=== PATIENT | male | born 1975 | race Caucasian/White ===

== ENCOUNTER 2021-04-05 18:42 | Emergency (ER) | payer OTHER, SELFPAY ==
--- NOTE | ~2021-04-05 | XR_ITS ---
EXAMINATION: XR foot RT min 3V DATE: 04/05/2021 19:19 INDICATION: Right foot pain TECHNIQUE: Dorsoplantar, lateral, and 2 oblique views of the right foot were obtained. COMPARISON: None. FINDINGS: There is hallux valgus at the first metatarsophalangeal joint. No fracture is identified. T he soft tissues are normal. IMPRESSION: 1. Hallux valgus at the first metatarsophalangeal joint. No acute osseous abnormality. Reviewed, dictated and finalized at location A. IMPRESSION: 1. Hallux valgus at the first metatarsophalangeal joint. No acute osseous abnor mality.
[2021-04-05 19:08] VITALS: BP 143/64; PULSE 97; RESP 18; TEMP 36.1; O2SAT 97
--- NOTE | 2021-04-05 21:45 | ED_ITS ---
HPI - Extremity Problem General Chief complaint: Extremity Problem,Nontraumatic Stated complaint: pain to feet Time Seen by Provider: 04/05/21 21:07 Source: patient Mode of arrival: ambulatory Limitations: no limitations History of Present Illness HPI Narrative: Patient is a 45-year-old male complaining of right foot swelling after he felt something sting me inside his house yesterday. Patient states that when he woke up this morning he noticed his foot swelling. Patient denies any calf pain or swelling. Patient denies any fever or chills. Related Data Allergies Allergy/AdvReac Type Severity Reaction Status Date / Time ketorolac Allergy Mild Vomiting Verified 04/05/21 21:16 gabapentin Allergy Hallucinati Verified 04/05/21 21:16 ng Review of Systems Review of Systems: All systems reviewed & are unremarkable except as noted in HPI and below PMFSH Social History Social History Smoking status: Current every day smoker Alcohol intake: never Comments Past medical history: Bunions Family history: Unknown Social history: Positive for smoker, occasional EtOH use, no drug use Exam Const: General: no acute distress and alert Nutritional Appearance: obese Orientation/consciousness: patient oriented x3 HENMT: Head: normal to inspection Neck: Neck: normal visual inspection Resp: Effort & Inspection: normal respiratory effort Skin: General skin exam: normal color Neuro: General: patient oriented x3 and moves all extremities Extrem: Other: Mild right foot swelling, negative for any redness or warmth, full range of motion, neurovascular intact Course Vital Signs Vital signs: Vital Signs Temperature 36.1 C L 04/05/21 19:08 Pulse Rate 97 04/05/21 19:08 Respiratory Rate 18 04/05/21 19:08 Blood Pressure 143/64 H 04/05/21 19:08 Pulse Oximetry 97 04/05/21 19:08 Temperature 36.1 C L 04/05/21 19:08 Pulse Rate 97 04/05/21 19:08 Respiratory Rate 18 04/05/21 19:08 Blood Pressure 143/64 H 04/05/21 19:08 Pulse Oximetry 97 04/05/21 19:08 MDM - Extremity (Nontraumatic) Differential Diagnosis Differential diagnosis: Likely gout and other (Insect bite, allergic reaction, p eripheral edema) Discharge Plan Discharge Clinical Impression: Localized swelling of right foot Patient Disposition: Home, Self-Care Condition: Stable Instructions: General Allergic Reaction (ED) Follow-up/Referrals: Keyur,Eugene Alvarado MD [Primary Care Provider] - 04/06/21 Time of Disposition: 21:49
[2021-04-05] MEDS: FAMOTIDINE 20 MG TABLET 40 MG PO (22:03)
[2021-04-05] MEDS: diphenhydrAMINE HCl INJ 50 MG/ML VIAL IM (22:03)
== END 2021-04-05 22:10 | disposition home or self-care (01) ==
PROVIDERS: Emergency Provider Emergency Medicine; PCP Family Medicine
DX: M79.89 Other specified soft tissue disorders (principal); F17.200 Nicotine dependence, unspecified, uncomplicated
CPT/HCPCS: 73630; 96372; 99284; A9270; J1100; J1200

== ENCOUNTER 2021-07-27 15:13 | Emergency (ER) | payer OTHER, SELFPAY ==
--- NOTE | ~2021-07-27 | XR_ITS ---
EXAMINATION: XR chest 2V EXAM DATE: 07/27/2021 15:35 INDICATION: L Sided Lower Cp Radiates To Back Since This Morning W/ SOB . TECHNIQUE: Frontal and lateral projections of the chest obtained and reviewed. Comparison is made to prior examination from 01/02/2017. FINDINGS: The lungs are clear. There are no pleural effusions. The cardiomediastinal silhouette is within normal limits. There is no pneumothorax suspected. The bones and soft tissues are unremarkab le. IMPRESSION: No acute cardiopulmonary findings. Reviewed, dictated and finalized at location B. MOTIVE CUSTOMER EXPERIENCE ADVISOR
--- NOTE | 2021-07-27 15:14 | ECG_ITS ---
Measurements Intervals [place] Rate: 96 P: 2 NC: 133 QRS: 59 QRSD: 105 T: 49 QT: 353 QTc: 447 Interpretive Statements SINUS RHYTHM BASELINE ARTIFACT- I, II, III, AVR, AVL, AVF, V1-V6 NORMAL ECG Electronically Signed On 07-27-2021 15:55:56 TECHNICAL SUPERVISOR by Peter Leblanc D.O.
[2021-07-27 15:15] VITALS: BP 137/75; PULSE 95; RESP 20; TEMP 36.4; O2SAT 100
[2021-07-27 15:30] LABS: Basophils Absolute Auto 0.1 K/mm3 (0.0-0.1); Basophils Percent Auto 0.7 % (0.2-1.2); Eosinophils Absolute Auto 0.3 K/mm3 (0-0.3); Eosinophils Percent Auto 4.2 % (0-4.4); Hematocrit 50.9 % (42.0-52.0); Hemoglobin 17.3 g/dL (14.0-18.0); Immature Granulocyte Absolute 0.02 K/mm3 (0.00-0.031); Immature Granulocyte Percent A 0.2 % (0-0.5); Lymphocytes Absolute Auto 2.82 K/mm3 (0.9-3.2); Lymphocytes Percent Auto 34.9 % (18.3-44.2); Mean Corpuscular Hemoglobin 33.5 pg (26-34); Mean Corpuscular Volume 98.6 fl (80-100); Mean Platelet Volume 11.3 fl (7.4-10.4); Monocytes Absolute Auto 0.7 K/mm3 (0.1-0.6); Neutrophils Absolute Auto 4.2 K/mm3 (1.3-6.7); Platelet Count Result 159 k/mm3 (150-375); Red Blood Count 5.16 M/mm3 (4.6-6.20); Red Cell Distribution Width 12.9 % (11.5-14.5); White Blood Count 8.1 K/mm3 (4.5-10.0)
[2021-07-27 15:40] LABS: Alanine Aminotransferase 61 U/L (4-50); Albumin Level 4.4 g/dL (3.5-5.1); Alkaline Phosphatase 60 U/L (38-126); Anion Gap 9 mmol/L (8-16); Aspartate Amino Transferase 40 U/L (17-59); Bilirubin,Total 0.3 mg/dL (0.2-1.3); Blood Urea Nitrogen 14 mg/dL (9-20); Calcium 9.2 mg/dL (8.4-10.2); Carbon Dioxide 25 mmol/L (22-30); Chloride 104 mmol/L (98-107); Estimated CRCL calculation 132 ml/min; Estimated Glomerular Filt Rate > 60; Glucose 173 mg/dL (65-110); INR 0.9; Lipase 117 U/L (23-300); Potassium 3.9 mmol/L (3.4-5.0); Sodium 138 mmol/L (137-145)
[2021-07-27 15:41] LABS: Partial Thromboplastin Time 26.9 SECONDS (22.3-36.8)
[2021-07-27 15:52] LABS: Troponin I < 0.012 ng/mL (0.000-0.034)
[2021-07-27 18:00] VITALS: BP 124/69; PULSE 77; RESP 16; O2SAT 100
[2021-07-27 18:56] LABS: Troponin I < 0.012 ng/mL (0.000-0.034)
[2021-07-27 19:00] VITALS: BP 118/62; PULSE 81; RESP 16; O2SAT 96
[2021-07-27] MEDS: MORPHINE SULFATE (*CRX) 4 MG/ML INJ IV PUSH (19:17)
--- NOTE | 2021-07-27 19:18 | ED.CHESTPAIN ---
HPI - Chest Pain General Chief Complaint: Chest Pain Stated Complaint: chest pains Time Seen by Provider: 07/27/21 18:19 Source: patient and family Mode of arrival: ambulatory Limitations: no limitations History of Present Illness HPI narrative: 45-year-old with a history of diabetes here with complaints of sudden onset of chest pain when he woke up this morning. Patient states the pain was intense which made him to buckle down. He denied any shortness of breath, nausea or vomiting. He states the pain is in the upper abdomen. No history of nausea or vomiting. MD complaint: chest pain Onset (ago): day(s) (1) Timing of current episode: episodic and still present Onset: during rest Pain location: left chest and epigastric Pain radiation: none Severity: moderate Quality: aching and heaviness Relieving factors: nothing Exacerbating factors: nothing Risk Factors Coronary artery disease risk factors: diabetes Related Data Allergies Allergy/AdvReac Type Severity Reaction Status Date / Time ketorolac AdvReac Mild Vomiting Verified 07/27/21 19:17 gabapentin AdvReac Hallucinati Verified 07/27/21 19:17 ng Review of Systems Review of Systems: All systems reviewed & are unremarkable except as noted in HPI and below Constitutional: Constitutional: Reports no additional constitutional complaints Eyes: Eyes: Reports no additional eye complaints ENT: Reports system reviewed and no additional complaints, except as documented Cardiovascular: Cardiovascular: Reports as per HPI Respiratory: Respiratory: Reports no additional respiratory complaints Gastrointestinal: Gastrointestinal: Reports as per HPI Musculoskeletal: Musculoskeletal: Reports no additional musculoskeletal complaints PMFSH Social History Social History Smoking status: Current every day smoker Alcohol intake: never Exam Narrative: GENERAL: Well-appearing, well-nourished, and in no acute distress. HEAD: Normocephalic, atraumatic. EYES: PERRLA and EOMI.. NECK: Supple. CHEST: Clear to auscultation. No respiratory distress. HEART: Regular rate and rhythm. No murmur heard. Normal peripheral pulses. ABDOMEN: Soft, nontender, nondistended, normal active bowel sounds. EXTREMITIES: Normal range of motion. No edema. SKIN: Warm, dry, no rash. NEURO: No focal deficits. Alert and oriented x3. PSYCH: Normal mood and affect. Course Course Emergency Course: Patient still complains of pain in the upper abdomen none in the chest he wants something to relax him. I informed him about the lab work, EKG and chest x-ray findings. His pain is most likely noncardiac. Advised him to follow-up his primary doctor. Vital Signs Vital signs: Vital Signs Temperature 36.4 C L 07/27/21 15:15 Pulse Rate 95 07/27/21 15:15 Respiratory Rate 20 07/27/21 15:15 Blood Pressure 137/75 07/27/21 15:15 Pulse Oximetry 100 07/27/21 15:15 Temperature 36.4 C L 07/27/21 15:15 Pulse Rate 95 07/27/21 15:15 Respiratory Rate 20 07/27/21 15:15 Blood Pressure 137/75 07/27/21 15:15 Pulse Oximetry 100 07/27/21 15:15 MDM - Chest Pain Differential Diagnosis Differential diagnosis: Likely atypical chest pain, costochondritis and chest pain Medical Records Data Attestation: I reviewed the patient's medical records. Lab Data Attestation: I reviewed the patient's lab results. Result diagrams: 07/27/21 15:25 07/27/21 15:25 Labs: Lab Results 07/27/21 07/27/21 07/27/21 Range/Units 15:25 15:25 15:25 WBC 8.1 (4.5-10.0) K/mm3 RBC 5.16 (4.6-6.20) M/mm3 Hgb 17.3 (14.0-18.0) g/dL Hct 50.9 (42.0-52.0) % MCV 98.6 (80-100) fl MCH 33.5 (26-34) pg MCHC 34.0 (32-36) g/dl RDW 12.9 (11.5-14.5) % Plt Count 159 (150-375) k/mm3 MPV 11.3 H (7.4-10.4) fl Immature Gran % (Auto) 0.2 (0-0.5) % Neut % (Auto) 52.0 (45.5-73.1) % Lymph %
[2021-07-27 19:49] VITALS: BP 119/68; PULSE 79; RESP 15; O2SAT 98
== END 2021-07-27 19:54 | disposition home or self-care (01) ==
PROVIDERS: Emergency Medicine; Emergency Provider Family Medicine; PCP Family Medicine
DX: R07.89 Other chest pain (principal); F17.210 Nicotine dependence, cigarettes, uncomplicated
CPT/HCPCS: 36415; 71046; 80053; 83690; 84484; 85025; 85610; 85730; 93005; 96374; 99284; J2270

== ENCOUNTER 2023-04-04 15:09 | Emergency (ER) | payer OTHER, SELFPAY ==
[2023-04-04 15:11] VITALS: BP 128/88; PULSE 92; RESP 20; TEMP 36.4; O2SAT 98
--- NOTE | 2023-04-04 17:49 | ED.GENADULT ---
[facility] - General Adult General Chief complaint: Extremity Problem,Nontraumatic Stated complaint: RLE issues Time Seen by Provider: 04/04/23 17:37 Source: patient Mode of arrival: ambulatory Limitations: no limitations History of Present Illness HPI narrative: This is a 47-year-old male who presents to the ED with chief complaint of right foot pain ongoing for several months. Reports the pain is getting worse which is why he is here today. Reports he has known bunions and plantar warts causing pain. He is waiting for his appointment with podiatry after being referred by his PCP for this. He does not have any prescriptions for anti-inflammatories. Denies fevers, chills, numbness, weakness. Related Data Home Medications Medication Instructions Recorded Confirmed amitriptyline 50 mg tablet 07/27/21 07/27/21 baclofen 10 mg tablet mg 07/27/21 blood sugar diagnostic ([facility] 07/27/21 07/27/21 Verio test strips) bupropion HCl 150 mg tablet,12 hr PO 07/27/21 sustained-release buspirone 30 mg tablet mg 07/27/21 clonazepam 0.5 mg tablet 07/27/21 fluticasone propionate 50 intranasal 07/27/21 mcg/actuation nasal spray,suspension hydrocodone 10 mg-acetaminophen tablet 07/27/21 325 mg tablet [facility]ets [facility] 07/27/21 07/27/21 Plus Lancet) metformin 500 mg tablet mg 07/27/21 omeprazole 40 mg capsule,delayed 07/27/21 release pregabalin 75 mg capsule 07/27/21 Allergies Allergy/AdvReac Type Severity Reaction Status Date / Time ketorolac AdvReac Mild Vomiting Verified 04/04/23 17:42 gabapentin AdvReac Hallucinati Verified 04/04/23 17:42 ng Review of Systems Review of Systems: All systems as dictated in [facility] Social History Social History Smoking status: Current every day smoker Alcohol intake: never Exam Narrative: GENERAL: Well-appearing, well-nourished, and in no acute distress. HEAD: Normocephalic, atraumatic. EYES: PERRLA and EOMI. ENT: Nares clear, no rhinorrhea or epistaxis. Mucous membranes moist. Oropharynx without tonsillar hypertrophy exudate or other lesions. NECK: Supple. No adenopathy or masses. CHEST: No respiratory distress. Clear to auscultation. No wheezes rales or rhonchi HEART: Regular rate and rhythm. No murmur heard. Normal peripheral pulses. ABDOMEN: Soft, nontender, nondistended, normal active bowel sounds. MSK: Tenderness at the great toe MTP on the right foot. Prominent first MTP joint. Tenderness to the plantar surface of the right foot diffusely. Full range of motion of the foot and ankle. No warmth, bruising, or crepitus. No deformity. Normal range of motion. No edema. SKIN: Warm, dry, no rash. NEURO: Alert and oriented x3. No focal deficits. PSYCH: Normal mood and affect. Course Vital Signs Vital signs: Vital Signs Temperature 97.5 F L 04/04/23 15:11 Pulse Rate 92 04/04/23 15:11 Respiratory Rate 20 04/04/23 15:11 Blood Pressure 128/88 04/04/23 15:11 Pulse Oximetry 98 04/04/23 15:11 Oxygen Delivery Room Air 04/04/23 15:11 Temperature 97.5 F L 04/04/23 15:11 Pulse Rate 92 04/04/23 15:11 Respiratory Rate 20 04/04/23 15:11 Blood Pressure 128/88 04/04/23 15:11 Pulse Oximetry 98 04/04/23 15:11 Oxygen Delivery Room Air 04/04/23 15:11 Medical Decision Making MDM Narrative Medical decision making narrative: This is a 47-year-old male who presents to the ED with chief complaint of chronic right foot pain. Vitals are normal. Exam shows prominent right foot bunion and evidence of plantar fasciitis. He already has a podiatry appointment scheduled but needed help with pain control. I advised him that he needs very supportive comfortable shoes. Prescription for naproxen written. 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 Pt will be discharged in stable condition. Return precautions given and support
== END 2023-04-04 18:25 | disposition home or self-care (01) ==
LOC: ANHED 18:04
PROVIDERS: Emergency Provider Physician Assistant; PCP Family Medicine
DX: M72.2 Plantar fascial fibromatosis (principal); F17.200 Nicotine dependence, unspecified, uncomplicated
CPT/HCPCS: 99283

== ENCOUNTER 2025-06-08 22:33 | Emergency (ER) | payer OTHER, SELFPAY ==
--- NOTE | 2025-06-08 22:36 | ECG_ITS ---
Test Date: 2025-06-08 22:40:48 Measurements Intervals [place] Rate: 97 P: 85 OK: 162 QRS: 98 QRSD: 108 T: 128 QT: 359 QTc: 457 Interpretive Statements SINUS RHYTHM WITH SINUS ARRHYTHMIA RIGHT AXIS DEVIATION BORDERLINE R WAVE PROGRESSION, ANTERIOR LEADS BASELINE ARTIFACT- I, II, III, AVR, AVL, AVF, V1-V6 BORDERLINE ECG No previous ECG available for comparison Electronically Signed On 06-09-2025 07:08:39 DOCTOR OF NATUROPATHIC MEDICINE by Peter Leblanc D.O.
[2025-06-08 22:41] VITALS: BP 137/107; PULSE 113; RESP 22; TEMP 36.7; O2SAT 99
[2025-06-08 22:47] VITALS: RESP 20
[2025-06-08 22:51] VITALS: O2SAT 99
[2025-06-08 22:59] LABS: Hematocrit 43.8 % (42.0-52.0); Hemoglobin 15.5 g/dL (14.0-18.0); Immature Granulocyte Percent A 0.4 % (0-0.5); Lymphocytes Absolute Auto 1.81 K/mm3 (0.9-3.2); Mean Corpuscular HGB Conc 35.4 g/dl (32-36); Mean Corpuscular Hemoglobin 33.4 pg (26-34); Mean Corpuscular Volume 94.4 fl (80-100); Nucleated Red Blood Cells Absolute Auto 0.000 K/mm3 (0.0-0.012); Nucleated Red Blood Cells Perc 0.0 % (0.0-0.2); Platelet Count Result 192 k/mm3 (150-375); Red Blood Count 4.64 M/mm3 (4.6-6.20); White Blood Count 10.6 K/mm3 (4.5-10.0)
--- NOTE | 2025-06-08 22:59 | ED_ITS ---
HPI - General Adult General Chief complaint: Overdose Stated complaint: POSSIBLE OVERDOSE, HALLUCINATIONS Time Seen by Provider: 06/08/25 22:47 History of Present Illness HPI narrative: Patient 49-year-old gentleman who presents emergency department with chief complaint of I think I am having a psychotic break the patient reports that he has been under immense amount of stress recently reports that his several months ago and reports that he has been using a lot of drugs including cocaine reports he last used cocaine earlier today the patient reports this evening he was watching TV and thought the TV was specifically talking to him he started yelling at TV police was called for a potential domestic disturbance the patient states that he is concerned that he may be getting psychotic Related Data Home Medications ?Medication ?Instructions ?Recorded ?Confirmed ?Last Taken ?Type amitriptyline 50 mg tablet 07/27/21 07/27/21 Unknown History baclofen 10 mg tablet mg 07/27/21 Unknown History blood sugar diagnostic (OneTouch 07/27/21 07/27/21 Un known History Verio test strips) bupropion HCl 150 mg tablet,12 hr PO 07/27/21 Unknown History sustained-release buspirone 30 mg tablet mg 07/27/21 Unknown History clonazepam 0.5 mg tablet 07/27/21 Unknown History fluticasone propionate 50 intranasal 07/27/21 Unknown History mcg/actuation nasal spray,suspension hydrocodone 10 mg-acetaminophen tablet 07/27/21 Unkno wn History 325 mg tablet lancets 33 gauge (OneTouch Delica 07/27/21 07/27/21 U nknown History Plus Lancet) metformin 500 mg tablet mg 07/27/21 Unknown History omeprazole 40 mg capsule,delayed 07/27/21 Unknown Hi story release pregabalin 75 mg capsule 07/27/21 Unknown History Allergies Allergy/AdvReac Type Severity Reaction Status Date / Time ketorolac AdvReac Mild Vomiting Verified 04/04/23 17:42 gabapentin AdvReac Hallucinati Verified 04/04/23 17:42 ng Review of Systems 2 Review of Systems: A 10 system review of systems was completed on the patient and is negative except for what is stated in the HPI. Nursing and ancillary documentation was reviewed. [facility] Social History Social History Smoking status: Current every day smoker Alcohol intake: never Substance use type: marijuana and crack/cocaine Exam 2 Narrative: GENERAL: Well-appearing, well-nourished, and in no acute distress. HEAD: Normocephalic, atraumatic. EYES: PERRLA and EOMI. ENT: Nares clear, no rhinorrhea or epistaxis. Mucous membranes moist. NECK: Supple. CHEST: Clear to auscultation. No respiratory distress. HEART: Regular rate and rhythm. No murmur heard. Normal peripheral pulses. ABDOMEN: Soft, nontender, nondistended, normal active bowel sounds. EXTREMITIES: Normal range of motion. No edema. SKIN: Warm, dry, no rash. NEURO: No focal deficits. Alert and oriented x3. PSYCH: Normal mood and affect. Denies suicidal or homicidal ideation reports to auditory hallucinations Course Vital Signs Vital signs: Vital Signs Temperature 36.7 C 06/08/25 22:41 Pulse Rate 113 H 06/08/25 22:41 Respiratory Rate 22 H 06/08/25 22:41 Blood Pressure 137/107 H 06/08/25 22:41 Pulse Oximetry 99 06/08/25 22:41 Oxygen Delivery Room Air 06/08/25 22:41 Temperature 36.7 C 06/08/25 22:41 Pulse Rate 113 H 06/08/25 22:41 Respiratory Rate 20 06/08/25 22:47 Blood Pressure 137/107 H 06/08/25 22:41 Pulse Oximetry 99 06/08/25 22:51 Oxygen Delivery Room Air 06/08/25 22:51 MDM Differential Diagnosis Differential Diagnosis: Substance induced mood disorder, substance induced psychosis, psychotic disorder, The patient was alert and oriented x3 but having auditory hallucinations the patient chose to leave without completing services Lab Data 06/08/25 22:53 06/08/25 22:53 Labs: Lab Results 06/08/25 06/09/25 Range/Units 22:53 00:53 WBC 10.6 H (4.5-10.0) K/mm3 RBC 4.64 (4.6-6.20) M/mm3 Hgb 15.5 (14.0-18.0) g/dL Hct 43.8 (42.0-52.0) % MCV 94.4 (80-100) fl MCH 33.4 (26-34) pg MCHC 35.4 (32-36) g/dl RDW 13.1 (11.5-14.5) % Plt Count 192 (150-375) k/mm3 MPV 10.9 H (7.4-10.4) fl Immature Gran % (Auto) 0.4 (0-0.5) % Neut % (Auto) 74.6 H (45.5-73.1) % Lymph % (Auto) 17.0 L (18.3-44.2) % [place] % (Auto) 7.2 (2.6-8.5) % Eos % (Auto) 0.3 (0-4.4) % Baso % (Auto) 0.5 (0.2-1.2) % Lymph # (Auto) 1.81 (0.9-3.2) K/mm3 [place] # (Auto) 0.8 H (0.1-0.6) K/mm3 Eos # (Auto) 0.0 (0-0.3) K/mm3 Baso # (Auto) 0.1 (0.0-0.1) K/mm3 Abs Immat Gran (auto) 0.04 H (0.00-0.031) K/mm3 Absolute Neuts (auto) 7.9 H (1.3-6.7) K/mm3 Absolute Nucleated RBC 0.000 (0.0-0.012) K/mm3 Nucleated RBC % 0.0 (0.0-0.2) % Sodium 138 (137-145) mmol/L Potassium 3.4 (3.4-5.0) mmol/L Chloride 104 (98-107) mmol/L Carbon Dioxide 24 (22-30) mmol/L Anion Gap 10 (4-12) mmol/L BUN 11 (9-20) mg/dL Creatinine 0.95 (0.7-1.3) mg/dL Estim Creat Clear Calc 107 ml/min Estimated GFR > 60 (59 - ) Glucose 105 (65-110) mg/dL Lactic Acid 1.1 (0.7-2.0) mmol/L Calcium 9.8 (8.4-10.2) mg/dL Total Bilirubin 0.7 (0.2-1.3) mg/dL AST 48 (17-59) U/L ALT 71 H (6-50) U/L Alkaline Phosphatase 55 (38-126) U/L Total Protein 8.4 H (6.3-8.2) g/dL Albumin 4.8 (3.5-5.1) g/dL TSH 0.882 (0.465-4.680) uIU/mL Urine Color Yellow (Yellow) Urine Appearance Clear (Clear) Urine pH 6.0 (5.0-9.0) Ur Specific [place] 1.013 (1.001-1.035) Urine Protein 2+ H (Negative) mg/dL Urine Glucose (UA) Negative (Negative) mg/dL Urine Ketones 1+ H (Negative) mg/dL Ur Blood (Man) Negative (Negative) Urine Nitrate Negative (Negative) Urine Bilirubin Negative (Negative) Urine Urobilinogen 2.0 H (<2.0) mg/dL Add Ur Microanalysis Reviewed Leukocyte Esterase Rfl 1+ H (Negative) MERYL/UL Urine RBC 0-2 (0-2) /hpf Urine WBC 11-20 H (0-3) /hpf Ur Squamous Epith Cells None seen (Few) /hpf Urine Bacteria None seen /hpf Urine Casts 0-2 Hyaline Casts Present (None) /lpf Urine Mucus Present /lpf Sperm Presence Present Salicylates < 1.0 L (2-20) mg/dL Urine Opiates Screen Positive A (Negative) Urine Methadone Screen Negative (Negative) Acetaminophen < 10 L (10-30) ug/mL Ur Barbiturates Screen Negative (Negative) Ur Phencyclidine Scrn Negative (Negative) Ur Amphetamine Screen Negative (Negative) U Benzodiazepines Scrn Negative (Negative) Urine Cocaine Screen Positive A (Negative) U Cannabinoids Screen Positive A (Negative) Ethyl Alcohol < 10 (<10) mg/dL Influenza A (RT-PCR) Negative (Negative) Influenza B (RT-PCR) Negative (Negative) SARS-CoV-2 RNA (RT-PCR) Negative (Negative) Discharge Plan Discharge Clinical Impression: Cocaine intoxication, Auditory hallucinations Patient Disposition: Elopement After Seen by Prov Patient Language: Luxembourgish Prescriptions: No Action metformin 500 mg tablet bupropion HCl 150 mg tablet sustained-release 12 hr PO clonazepam 0.5 mg tablet (DME) OneTouch Verio test strips Strip MISCELLANEOUS hydrocodone-acetaminophen 10-325 mg tablet omeprazole 40 mg capsule,delayed release(DR/EC) amitriptyline 50 mg tablet baclofen 10 mg tablet buspirone 30 mg tablet fluticasone propionate 50 mcg/actuation spray,suspension INTRANASAL pregabalin 75 mg capsule (DME) lancets [OneTouch Delica Plus Lancet] 33 gauge misc MISCELLANEOUS naproxen 500 mg tablet 500 mg PO BID PRN (Reason: pain) Qty: 30 0RF methylprednisolone [Medrol (Jose)] 4 mg tablets,dose pack See Rx Instructions .ROUTE .COMPLEX Qty: 21 0RF Rx Instructions: orally per package directions Follow-up/Referrals: Keyur,Eugene Alvarado MD [Primary Care Provider]
[2025-06-08 23:08] LABS: Alanine Aminotransferase 71 U/L (6-50); Albumin Level 4.8 g/dL (3.5-5.1); Alkaline Phosphatase 55 U/L (38-126); Anion Gap 10 mmol/L (4-12); Aspartate Amino Transferase 48 U/L (17-59); Bilirubin,Total 0.7 mg/dL (0.2-1.3); Blood Urea Nitrogen 11 mg/dL (9-20); Calcium 9.8 mg/dL (8.4-10.2); Carbon Dioxide 24 mmol/L (22-30); Chloride 104 mmol/L (98-107); Estimated CRCL calculation 107 ml/min; Estimated Glomerular Filt Rate > 60; Glucose 105 mg/dL (65-110); Potassium 3.4 mmol/L (3.4-5.0); Sodium 138 mmol/L (137-145); Total Protein 8.4 g/dL (6.3-8.2)
[2025-06-08 23:14] LABS: Acetaminophen < 10 ug/mL (10-30); Salicylate < 1.0 mg/dL (2-20)
--- OUTSIDE RECORDS SUMMARY | 2025-06-08 23:27 | XMS_ITS | Clinical Summary ---
Author Organization [place] [address] [address] [facility] [place] [address] Care Team Providers Care Feeder/Folder Name Role Phone Eugene Baer MD Primary Care Provider [phone] Eugene Baer MD Unavailable [phone] Allergies Active Allergy Reactions Criticality Noted Date Comments Gabapentin Hallucinations Medium 07/07/2022 Ketorolac Nausea only Low 07/07/2022 Meloxicam Other (See comments) Low 07/07/2022 Made him feel weird Medications amitriptyline (ELAVIL) 50 mg tablet Take 50 mg by mouth nightly Active albuterol HFA (PROVENTIL HFA,VENTOLIN HFA,PROAIR HFA) 90 mcg/actuation inhaler Inhale 2 puffs every 6 (six) hours as needed for wheezing Active baclofen (LIORESAL) 10 mg tablet Take 10 mg by mouth 3 (three) times a day Active clonazePAM (KlonoPIN) 1 mg tablet Take 1 mg by mouth 2 (two) times a day Active fluticasone (VERAMYST) 27.5 mcg/actuation nasal sprayIndication s:Allergic Rhinitis Administer 2 sprays into each nostril daily Active HYDROcodone-crystal taminophen (NORCO) 10-325 mg per tabletIndicatio ns:Pain Take 1 tablet by mouth every 6 (six) hours as needed for pain Active methocarbamoL (ROBAXIN) 500 mg tablet Take 500 mg by mouth 4 (four) times a day Active omeprazole (PriLOSEC) 40 mg capsule Take 40 mg by mouth daily Active pregabalin (LYRICA) 75 mg capsule Take 75 mg by mouth 2 (two) times a day Active topiramate 25 mg capsule,extende d release 24hr Take 25 mg by mouth daily Active sildenafiL (VIAGRA) 100 mg tablet Take 100 mg by mouth daily as needed for erectile dysfunction Active amitriptyline (ELAVIL) 50 mg tablet Take 1 tablet (50 mg total) by mouth nightly 5 Active baclofen (LIORESAL) 10 mg tablet Take 1 tablet (10 mg total) by mouth 5 Active cyclobenzaprine (FLEXERIL) 10 mg tablet Take 1 tablet (10 mg total) by mouth [address] (CYMBALTA) 60 mg capsule Take 1 capsule (60 mg total) by mouth 5 Active HYDROcodone-crystal taminophen (NORCO) 10-325 mg per tablet Take 1 tablet by mouth every 4 (four) hours as needed 5 Active hydrOXYzine (VISTARIL) 25 mg capsule Take 1 capsule (25 mg total) by mouth 5 Active omeprazole (PriLOSEC) 40 mg capsule Take 1 capsule (40 mg total) by mouth 5 Active topiramate (TOPAMAX) 25 mg capsule Take 1 capsule (25 mg total) by mouth daily 5 Active benzonatate (TESSALON) 200 mg capsuleIndicati ons:Acute cough Take 1 capsule (200 mg total) by mouth 3 (three) times a day as needed for cough 30 capsule 5 Active Active Problems Problem Noted Date Diagnosed Date Screening for colon cancer 04/24/2024 Medical History Medical History Date Comments Anxiety Arthritis GERD (gastroesophageal reflux disease) Family History Medical History Relation Name Comments Cancer Father Brain Aneurysm Mother Relation Name Status Comments Father Mother Social History Tobacco Use Types Packs/Day Years Used Date Smoking Tobacco: Every Day Cigarettes Smokeless Tobacco: Never Tobacco Cessation:Ready to Q uit: Not Asked; Counseling Given: Not Answered AUDIT-C Answer Date Recorded Q1: How often do you have a drink containing alc ohol? Monthly or less 07/07/2022 Average Number of Drinks Not on file 023 Frequency of Binge Drinking Not on file 06/19 Sex and Gender Information Value Date Recorded Sex Assigned at Not on file Legal Sex Male 8:00 PM [employer] Gender Identity Not on file Sexual Orientation Not on file Last Filed Vital Signs Vital Sign Reading Time Taken Comments Blood Pressure 123/74 08/26/2024 2:06 PM CDT Pulse 88 08/26/2024 2:06 PM CDT Temperature 36.7 C (98.1 F) 08/26/2024 2:06 PM CDT Respiratory Rate 20 08/26/2024 2:06 PM CDT Oxygen Saturation 95% 08/26/2024 2:06 PM CDT Inhaled Oxygen Concentration - - Weight 118.9 kg (262 lb 1.6 oz) 08/26/2024 2:06 PM CDT Height 185.4 cm (6' 1) 08/26/2024 2:06 PM CDT Body Mass Index 34.58 08/26/2024 2:06 PM CDT Plan of Treatment Scheduled Procedures Name Priority Associated Diagnoses Date/Ti me COLONOSCOPY Open Access Screening for colon cancer Health Maintenance Due Date Last Done Comments Colon Cancer Screening-Colonoscopy 1975 Depression Screening 1975 Hepatitis C Screening 1975 Hepatitis B Screening 12/02/1993 Regular Well Visit/Exam 18-64 12/02/1993 Pneumococcal vaccine <65 (1 of 2 - PCV) 12/02/1994 Covid-19 Vaccine (2024-2 6 season) 2025 03/21/2024, 05/09/2022, 06/10/2021, Additional history exists Influenza Vaccine (#1) 2025 , 03/09/2023, 05/04/2022, Additional history exists DTaP/Tdap/Td Vaccine (2 - Td or Tdap) 09/23/2025 09/24/2015 [place] [employer] AET[place] BETTER [facility] Member Subscriber Plan / Payer (Ef fective 2024-Present) Name:Herman Gerber Relation to Subscriber:Self Name:Herman Gerber Payer ID:[id number] (NAIC) Group ID:Not on file Type:MEDICAID RISK OTHER Address: [facility] [id number] [place] [id number] Care Teams Feeder/Folder Relationship Specialty [place] [address] [address] [address] PCP - General Family Practice 08/26/24 [place] [address] [place] [address] Family Practice 08/26/24
--- OUTSIDE RECORDS SUMMARY | 2025-06-08 23:27 | XMS_ITS | Clinical Summary ---
Author Organization [employer] [facility] lin Address [address] [facility] [address] Care Team Providers Care Garbage Man Name Role Phone Unavailable Primary Care Provider Unavailabl e Social History Tobacco Use Types Packs/Day Years Used Date Smoking Tobacco: Never Assessed Sex and Gender Information Value Date Recorded Sex Assigned at Not on file Legal Sex Male 10:01 AM EDT Gender Identity Not on file Sexual Orientation Not on file Plan of Treatment Not on file Medical Devices Not on file Insurance [facility]
[2025-06-08 23:34] LABS: Influenza A QL RT-PCR Negative (Negative); Influenza B QL RT-PCR Negative (Negative); SARS-CoV-2 RNA PCR Negative (Negative)
[2025-06-08 23:38] LABS: Thyroid Stimulating Hormone 0.882 uIU/mL (0.465-4.680)
[2025-06-09] MEDS: SODIUM CHLORIDE 0.9% IV 1,000 ML 999 ML IV CONT (00:21)
[2025-06-09 01:15] LABS: Add Urine Microscopic? YES; Appearance Urine Clear (Clear); Glucose Urine UA Negative (Negative); Leukocyte Esterase Ur 1+ LEU/UL (Negative); Need Manual Microscopic Reviewed; Nitrate Urine Negative (Negative); Non Pathogenic Casts 0-2; Specific Grav Ur 1.013 (1.001-1.035); Spermatozoa Urine Present
[2025-06-09 01:18] LABS: Cannabinoid Screen Urine Positive (Negative)
--- NOTE | 2025-06-09 01:34 | PC.NURSE ---
ON 06/09/2025 AT 0033 ANNELISE SALON STYLIST WHOM HAD BEEN WATCHING THIS PT IN HIS CUSTODY APPROACHED THE CHARGE NURSE DESK AND MADE THIS DIRECTOR OF BANDS THAT HE COULD NOT LONGER STAY. [employer] OFFICER ASKED IF WE COULD JUST NOTIFY THEM UPON PT'S DISCHARGE. THIS DIRECTOR OF BANDS TOLD THEM THAT WAS FINE, BUT WE WOULD NOT IRENA HIM IF HE RAN. [employer] OFFICER STATED THAT WAS UNDERSTOOD. ON 06/09/2025 AT 0121 PT ELOPED FROM MAIN ED VIA EMS BAY, SECURITY SAW THIS ON THE CAMERA AND FOLLOWED HIM. INSULATION NOZZLEMAN RETURNED AND CHECKED PT ROOM FOR BELONGINGS. INSULATION NOZZLEMAN STATED TO THIS CHARGE NURSE THAT ANNELISE MATTHEWS CAME BACK FOR HIM AND HE IS IN THEIR CAR NOW.
== END 2025-06-09 01:21 | disposition left against medical advice (07) ==
PROVIDERS: Emergency Provider Emergency Medicine; PCP Family Medicine
DX: F14.129 Cocaine abuse with intoxication, unspecified (principal); R44.0 Auditory hallucinations; Z11.52 Encounter for screening for COVID-19; F17.200 Nicotine dependence, unspecified, uncomplicated
CPT/HCPCS: 36415; 80053; 80143; 80179; 80307; 81001; 82077; 83605; 84443; 85025; 87086; 87636; 93005; 96360; 99283; J7030